=== PATIENT | male | born 1975 | race Caucasian/White ===

== ENCOUNTER 2019-11-01 15:45 | Emergency (ER) | payer OTHER ==
[~2019-11-01] VITALS: Ht 177.8 cm; Wt 113.4 kg
[2019-11-01 18:06] VITALS: BP 155/92
== END 2019-11-01 18:07 | disposition home or self-care (01) ==
LOC: M.ERS 15:45
DX: B34.9 Viral infection, unspecified (principal); J02.9 Acute pharyngitis, unspecified; Z20.828 Contact with and (suspected) exposure to other viral communicable diseases